=== PATIENT | female | born 1945 | race Caucasian/White ===

== ENCOUNTER 2022-04-01 16:48 | Inpatient (IN) | payer MEDICARE, BC ==
[~2022-04-01] VITALS: Ht 157.5 cm; Wt 47.2 kg
[2022-04-01] MEDS: POTASSIUM CHLORIDE 50 ML IV SCH ×4 (01:00→23:30)
[2022-04-01] MEDS ORDERED: ACETAMINOPHEN ES 500 MG TABLET PO ONE (19:00)
[2022-04-01] MEDS ORDERED: IV NORMAL SALINE 500 ML IV ONE (19:45)
[2022-04-01 19:56] LABS: HEMATOCRIT 35.9 % (31.2-41.9); MEAN CORPUSCULAR HEMOGLOBIN 32.6 uug (24.7-32.8); MEAN CORPUSCULAR VOLUME 97.4 fL (75.5-95.3); PLATELET COUNT (AUTO) 235 K/uL (179-408)
[2022-04-01 20:19] LABS: ALANINE AMINOTRANSFERASE 57 U/L (14-59); ALKALINE PHOSPHATASE 128 U/L (50-136); ASPARTATE AMINOTRANSFERASE 30 U/L (15-37); BILIRUBIN,DIRECT 0.1 mg/dL (0.0-0.2); BILIRUBIN,TOTAL 0.4 mg/dL (0.2-1.0); CARBON DIOXIDE 20 mmol/L (21-32); CHLORIDE 108 mmol/L (98-107); CREATININE 0.3 mg/dL (0.6-1.3); GLUCOSE 98 mg/dL (74-106); TOTAL PROTEIN, SERUM 4.9 g/dL (6.4-8.2); UREA NITROGEN, BLOOD 8 mg/dL (7-18)
[2022-04-01 20:22] LABS: POTASSIUM 2.4 mmol/L (3.5-5.1)
[2022-04-01] MEDS ORDERED: POTASSIUM CHLORIDE 20 MEQ TAB.PRT.SR PO ONE (20:30)
[2022-04-01 20:47] LABS: *BILIRUBIN,URIN NEGATIVE (NEGATIVE); *BLOOD, URINE 2+ (NEGATIVE); *CLARITY,URINE CLEAR (CLEAR); *COLOR,URINE YELLOW (YELLOW); *KETONES,URINE 2+ (NEGATIVE); *UROBILINOGEN,URINE 0.2 E.U./dl (NORMAL); LEUKOCYTE ESTERASE ,URINE NEGATIVE (NEGATIVE); NITRITE, URINE NEGATIVE (NEGATIVE); PH,URINE 5.5 (5.0-8.0); UGLUCOSE NEGATIVE (NEGATIVE)
[2022-04-01 20:53] LABS: THYROID STIMULATING HORMONE 0.284 mIU/mL (0.358-3.740)
[2022-04-01] MEDS ORDERED: VANCOMYCIN 1G/D5W 200 ML PIGGYBACK IV ONE (21:15)
[2022-04-01] MEDS ORDERED: PIPERACILLIN SODIUM/TAZOBACTAM 3.375 G in IV DEXTROSE 5% 50 ML IV ONE (21:15)
[2022-04-01] MEDS: MAGNESIUM SULFATE/D5W 100 ML IV SCH ×2 (21:20→22:00)
[2022-04-01 21:44] LABS: BACTERIA,URINE FEW /HPF (NONE SEEN); SQUAMOUS EPITHELIAL CELL,UR FEW /HPF (NONE SEEN); WBC,URINE 0-3 /HPF (0-3)
[2022-04-01] MEDS ORDERED: PIPERACILLIN/TAZOBACTAM/D5W 50 ML IV ONE (21:44)
[2022-04-01] MEDS ORDERED: FAMOTIDINE. 20 MG/2 ML VIAL IV ONE (23:15)
[2022-04-02] MEDS ORDERED: LORAZEPAM 0.5 MG TABLET PO ONE
[2022-04-02] MEDS ORDERED: LORAZEPAM 1 MG TABLET ONE (00:14)
[2022-04-02] MEDS ORDERED: FAMOTIDINE. 20 MG/2 ML VIAL IV ONE (00:14)
[2022-04-02] MEDS ORDERED: MAGNESIUM SULFATE/D5W 100 ML ONE (00:24)
[2022-04-02] MEDS ORDERED: POTASSIUM CHLORIDE 50 ML ONE (00:34)
[2022-04-02] MEDS ORDERED: ONDANSETRON 4 MG/2 ML VIAL IV PRN (06:00)
[2022-04-02] MEDS ORDERED: hydrALAZINE HCL 20 MG/1 ML VIAL IV PRN (06:00)
[2022-04-02] MEDS ORDERED: MORPHINE SULFATE 2 MG/1 ML DISP.SYRIN IV PRN (06:00)
[2022-04-02] MEDS ORDERED: IV NS 1000 ML 1,000 ML IV SCH (06:00)
[2022-04-02] MEDS ORDERED: ACETAMINOPHEN 325 MG TABLET PO PRN (06:00)
[2022-04-02] MEDS ORDERED: CEFTRIAXONE 1 G VIAL IV SCH (06:00)
[2022-04-02] MEDS ORDERED: IV NS 1000 ML 1,000 ML IV PRN (06:54)
[2022-04-02] MEDS ORDERED: CEFTRIAXONE 1 G in IV DEXTROSE 5% 50 ML IV SCH (07:00)
[2022-04-02 08:26] LABS: HEMATOCRIT 35.8 % (31.2-41.9); MEAN CORPUSCULAR HEMOGLOBIN 33.4 uug (24.7-32.8); MEAN CORPUSCULAR VOLUME 97.2 fL (75.5-95.3); PLATELET COUNT (AUTO) 231 K/uL (179-408)
[2022-04-02 08:31] LABS: CREATININE 0.7 mg/dL (0.6-1.3); MAGNESIUM 2.1 mg/dL (1.8-2.4); POTASSIUM 3.7 mmol/L (3.5-5.1)
[2022-04-02] MEDS: DOCUSATE SODIUM 100 MG CAPSULE PO SCH ×2 (09:00→17:13)
[2022-04-02] MEDS ORDERED: HEPARIN SODIUM,PORCINE 5,000 UNITS/ML VIAL SQ SCH (09:00)
[2022-04-02 11:34] VITALS: BP 155/87
[2022-04-02] MEDS ORDERED: RIVA20TA PO (11:41)
[2022-04-02] MEDS ORDERED: LORA-259 PO (11:41)
[2022-04-02] MEDS ORDERED: METO25TA6 PO (11:41)
[2022-04-02] MEDS ORDERED: LEVO88TA5 PO (11:41)
[2022-04-02] MEDS ORDERED: AMYL1CAP58 PO (11:41)
[2022-04-02] MEDS ORDERED: METOPROLOL TARTRATE 5 MG/5 ML VIAL IVP ONE ×2 (13:15→15:30)
[2022-04-02] MEDS ORDERED: IV NORMAL SALINE 500 ML IV ONE (13:30)
[2022-04-02] MEDS: METOPROLOL TARTRATE 25 MG TABLET PO SCH ×2 (14:13→21:31)
[2022-04-02 16:00] VITALS: BP 138/51
[2022-04-02] MEDS ORDERED: IOHEXOL 300MG/ML 100 ML INFUS..BTL ONE (16:27)
[2022-04-02] MEDS ORDERED: IV NORMAL SALINE 250 ML IV ONE (16:28)
[2022-04-02] MEDS ORDERED: SWABABLE VALVE TRANSFER SET EA MC ONE (16:28)
[2022-04-02] MEDS ORDERED: DILTIAZEM HCL 25 MG IV IV ONE (16:45)
[2022-04-02] MEDS ORDERED: METOPROLOL TARTRATE 25 MG TABLET PO SCH (17:00)
[2022-04-02] MEDS ORDERED: RIVAROXABAN 10 MG TABLET PO SCH (17:00)
[2022-04-02] MEDS ORDERED: LIPASE/PROTEASE/AMYLASE 4200 UNITS CAPSULE.DR PO SCH (17:00)
[2022-04-02] MEDS ORDERED: AMIODARONE HCL IV 150 MG in IV DEXTROSE 5% 100 ML IV ONE (18:00)
[2022-04-02] MEDS: METRONIDAZOLE 500 MG/NS 100ML 500 MG in PREMIXED 1 EACH IV SCH (18:38)
[2022-04-02] MEDS: AMIODARONE HCL IV 450 MG in IV DEXTROSE 5% 250 ML IV PRN (18:41)
[2022-04-02] MEDS ORDERED: LORAZEPAM 1 MG TABLET PO PRN (20:15)
[2022-04-02 20:50] VITALS: BP 148/60
[2022-04-03 00:51] VITALS: BP 134/56
[2022-04-03] MEDS ORDERED: METRONIDAZOLE 500 MG/NS 100ML 100 ML IV ONE (01:29)
[2022-04-03] MEDS: METRONIDAZOLE 500 MG/NS 100ML 500 MG in PREMIXED 1 EACH IV SCH ×2 (01:32→10:25)
[2022-04-03 04:42] VITALS: BP 108/62
[2022-04-03] MEDS: AMIODARONE HCL IV 450 MG in IV DEXTROSE 5% 250 ML IV PRN (06:16)
[2022-04-03 06:17] LABS: HEMATOCRIT 35.3 % (31.2-41.9); MEAN CORPUSCULAR HEMOGLOBIN 32.7 uug (24.7-32.8); MEAN CORPUSCULAR VOLUME 97.2 fL (75.5-95.3); PLATELET COUNT (AUTO) 237 K/uL (179-408)
[2022-04-03] MEDS ORDERED: LEVOTHYROXINE SODIUM 75 MCG TABLET PO SCH (07:00)
[2022-04-03 07:29] LABS: BILIRUBIN,TOTAL 0.6 mg/dL (0.2-1.0); CREATININE 0.6 mg/dL (0.6-1.3); MAGNESIUM 1.9 mg/dL (1.8-2.4); PHOSPHOROUS 3.1 mg/dL (2.5-4.9); POTASSIUM 3.4 mmol/L (3.5-5.1)
[2022-04-03 07:54] VITALS: BP 141/59
[2022-04-03] MEDS: METOPROLOL TARTRATE 25 MG TABLET PO SCH (08:59)
[2022-04-03] MEDS: LIPASE/PROTEASE/AMYLASE 4200 UNITS CAPSULE.DR PO SCH ×2 (08:59→13:27)
[2022-04-03] MEDS ORDERED: POTASSIUM CHLORIDE 20 MEQ POWDER PACKET PO ONE (09:00)
[2022-04-03] MEDS: DOCUSATE SODIUM 100 MG CAPSULE PO SCH (09:00)
[2022-04-03] MEDS ORDERED: POTASSIUM CHLORIDE 20 MEQ POWDER PACKET GT ONE (09:00)
[2022-04-03] MEDS: POTASSIUM CHLORIDE 50 ML IV SCH ×2 (09:00→10:00)
[2022-04-03 11:58] VITALS: BP 116/50
[2022-04-03] MEDS ORDERED: LEVO75TA7 PO (12:19)
[2022-04-03] MEDS ORDERED: POTA10CA43 PO (12:19)
[2022-04-03] MEDS ORDERED: AMIO200T5 PO (12:19)
[2022-04-03] MEDS ORDERED: AMOX-430 PO (12:23)
== END 2022-04-03 15:30 | disposition home or self-care (01) | DRG 872 ==
LOC: ER 16:50 → TELE3 23:55 → TELE-TD3 04-02 15:19
PROVIDERS: ADMIT Nurse Practitioner Family; ATTEND Nurse Practitioner Family
DX: A41.9 Sepsis, unspecified organism (principal); A04.9 Bacterial intestinal infection, unspecified; K57.92 Diverticulitis of intestine, part unspecified, without perforation or abscess without bleeding; E87.6 Hypokalemia; Z20.822 Contact with and (suspected) exposure to COVID-19; E03.9 Hypothyroidism, unspecified; F41.9 Anxiety disorder, unspecified; I10 Essential (primary) hypertension; I48.0 Paroxysmal atrial fibrillation; M19.90 Unspecified osteoarthritis, unspecified site; M81.0 Age-related osteoporosis without current pathological fracture; Z85.07 Personal history of malignant neoplasm of pancreas; Z85.3 Personal history of malignant neoplasm of breast; Z90.411 Acquired partial absence of pancreas; Z79.01 Long term (current) use of anticoagulants; R53.1 Weakness
CPT/HCPCS: 36415; 71045; 83605; 83735; 84100; 84443; 84484; 85025; 85730; 87040; 87400; 93005; A4663; A9150; G0378; J0282; J0696; J1644; J2270; J2405; J2543; J3370; J3475; J3480; J3490; J7040; J7050; Q9967